=== PATIENT | male | born 1990 | race Caucasian/White ===

== ENCOUNTER 2022-07-08 15:10 | Emergency (ER) | payer OTHER ==
[~2022-07-08] VITALS: Ht 172.7 cm; Wt 93.9 kg
[2022-07-08 15:13] VITALS: BP 135/92
--- NOTE | 2022-07-08 15:25 | NUR ---
32/M PRESENTS TO ED WITH C/O HEMATURIA SINCE WEDNESDAY, STATES HE BEGAN HAVING DYSURIA TWO DAYS AGO. REPORTS USING AZO WITH NO RELIEF OF SYMPTOMS, DENIES N/V/D OR FEVERS.
[2022-07-08] MEDS ORDERED: PYR100 PO (16:00)
[2022-07-08] MEDS ORDERED: SULF-59 PO (16:00)
[2022-07-08 16:24] VITALS: BP 135/92
--- NOTE | 2022-07-08 16:24 | NUR ---
Patient discharged with v/s stable. Written and verbal after care instructions given and explained. Patient alert, oriented and verbalized understanding of instructions. Ambulatory with steady gait. All questions addressed prior to discharge. ID band removed. Patient advised to follow up with PMD. Rx of PYRIDIUM AND BACTRIM given. Patient educated on indication of medication including possible reaction and side effects. Opportunity to ask questions provided and answered.
== END 2022-07-08 16:24 | disposition home or self-care (01) ==
LOC: MED 15:10
DX: R30.0 Dysuria (principal); R03.0 Elevated blood-pressure reading, without diagnosis of hypertension; Z79.2 Long term (current) use of antibiotics; Z79.899 Other long term (current) drug therapy
CPT/HCPCS: 81002; 87086; 99283